=== PATIENT | female | born 1995 | race Caucasian/White ===

== ENCOUNTER 2024-08-19 18:03 | Emergency (ER) | payer MEDICAID, SELFPAY ==
[2024-08-19 22:43] VITALS: BP 130/87; PULSE 90; RESP 19; TEMP 36.8; O2SAT 98
--- NOTE | 2024-08-19 22:50 | XR_ITS ---
Examination: Pelvic ultrasound, transabdominal, complete Technique: Transabdominal ultrasound of the pelvis performed using grayscale imaging Date and time of exam: August 19, 2024 2257 hrs. Indications: Vaginal bleeding irregular heavy menses 5 years, worse the last month Findings: Uterus 12.0 x 5.1 x 6.4 cm retroverted Fluid adjacent to the uterus and in the cul-de-sac Endometrial stripe 1.7 cm Right ovary 4.8 x 3.2 x 3.3 cm arterial flow Left ovary 4.0 x 2.6 x 3.2 cm arterial flow Impression: Free fluid superior to the cervix in the vaginal canal and in the cul-de-sac, clinical correlation advised, consider pelvic inflammatory disease No uterine mass or intrauterine gestation Mildly prominent right ovary, recommend 3-6 month follow-up pelvic sonography to document stability of right ovary
--- NOTE | 2024-08-19 22:51 | PD.EDRME ---
Rapid Medical Screening Exam RME Arrival date/time: 08/19/24 18:03 28-year-old female presents emergency department complaining of abnormal vaginal bleeding that is been ongoing for 5 years. Chief Complaint: Urogenital-Female Time Seen by Provider: 08/19/24 22:46 Vital signs: Vital Signs Temperature 98.3 F 08/19/24 22:43 Pulse Rate 90 08/19/24 22:43 Respiratory Rate 19 08/19/24 22:43 Blood Pressure 130/87 H 08/19/24 22:43 Pulse Oximetry (%) 98 08/19/24 22:43 Oxygen Delivery Method Room Air 08/19/24 22:43 Vital signs reviewed by provider: Yes
[2024-08-19 23:08] LABS: Collection Type, Urine Clean Catch
[2024-08-19 23:17] LABS: Bilirubin,Urine Negative (Negative); Blood,Urine 2+ (Negative); Color,Urine Lt-Yellow (Lt Yel-Yel); Culture Indicated,Urine Not Indicated; Glucose, Urine Negative (Negative); Ketones,Urine Negative (Negative); Leukocyte Esterase,Urine Negative (Negative); Nitrite,Urine Negative (Negative); Protein,Urine Trace (Neg - Trace); RBC,Urine 2 /hpf (0-3); Specific Gravity,Urine 1.021 (1.001-1.035); Squamous Epithelial Cell,Urine 9 /hpf (0-5); Urobilinogen,Urine Negative mg/dL (0.0-1.0); WBC,Urine 1 /hpf (0-5)
[2024-08-19 23:18] LABS: Clarity,Urine Hazy (Clear/Hazy)
[2024-08-19 23:40] LABS: Basophils # (Auto) 0.1 Thou/mm3 (0.0-0.2); Basophils % (Auto) 1 % (0-2.5); Eosinophils # (Auto) 0.3 Thou/mm3 (0.0-0.5); Eosinophils % (Auto) 3 % (0-10); Hematocrit 37.6 % (36.0-46.0); Immature Granulocytes % (Auto) 0 % (0-0); Immature Granulocytes Auto 0.03 Thou/mm3 (0.00-0.00); Lymphocytes # (Auto) 3.4 Thou/mm3 (1.0-4.8); Lymphocytes % (Auto) 31 % (10-50); Mean Corpuscular HGB Conc 34.6 g/dl (31.0-37.0); Mean Corpuscular Hemoglobin 29.9 pg (25.0-35.0); Mean Corpuscular Volume 86 fL (80-100); Monocytes # (Auto) 0.6 Thou/mm3 (0.0-0.8); Monocytes % (Auto) 6 % (0-12); Neutrophils # (Auto) 6.4 Thou/mm3 (1.8-7.7); Neutrophils % (Auto) 59 % (37-80); Nucleated Red Blood Cell % 0 /100 WBC (0); Platelet Count 431 Thou/mm3 (140-440); RDW Standard Deviation 41.9 fL (36.4-46.3); Red Blood Count 4.35 Miln/mm3 (4.00-5.20); White Blood Count 10.9 Thou/mm3 (3.6-11.0)
[2024-08-19 23:44] LABS: HCG,Qualitative Serum Negative
[2024-08-19 23:51] LABS: Alanine Aminotransferase 35 U/L (10-49); Albumin, Serum 4.8 gm/dL (3.5-5.0); Albumin/Globulin Ratio 1.5 (1.2-2.2); Alkaline Phosphatase 74 U/L (46-116); Anion Gap 9 (7-16); Aspartate Amino Transferase 39 U/L (0-34); BUN/Creatinine Ratio 11 Ratio (12-20); Bilirubin,Total 0.3 mg/dL (0.3-1.2); Blood Urea Nitrogen 8 mg/dL (9-23); Calcium 9.9 mg/dL (8.3-10.6); Calcium (Corrected) 9.9 mg/dL (8.5-10.1); Carbon Dioxide 24.7 mMol/L (20.0-31.0); Chloride 103 mMol/L (98-107); Creatinine (Component) 0.7 mg/dL (0.6-1.3); Globulin 3.1 gm/dL (2.3-3.5); Glucose 172 mg/dL (74-106); Osmolality,Calculated 276 (275-295); Potassium 3.8 mMol/L (3.4-5.1); Sodium 137 mMol/L (136-145); Total Protein 7.9 gm/dL (5.7-8.2); eGFR > 60 See Note
--- NOTE | 2024-08-20 00:18 | PD.EDFMALE ---
ED Female Urogenital RME/HPI General Chief complaint: Urogenital-Female Stated complaint: VAGINAL BLEEDING FOR 1 YEAR Time Seen by Provider: 08/19/24 22:46 Source: patient Arrival date/time: 08/19/24 18:03 28-year-old female presents emergency department complaining of abnormal vaginal bleeding that is been ongoing for 5 years. Patient denies any fever, chills, dysuria, flank pain, vomiting, or any other associated symptom. Mode of arrival: ambulatory Limitations: no limitations RME / HPI RME / HPI Narrative: 08/19/24 18:03 28-year-old female presents emergency department complaining of abnormal vaginal bleeding that is been ongoing for 5 years. Related Data Home Medications ?Medication ?Instructions ?Recorded ?Confirmed vit no.95-ferrous 1 tab PO QDAY 07/26/20 07/26/20 fumarate 28 mg-folic acid 800 mcg tablet () Allergies Allergy/AdvReac Type Severity Reaction Status Date / Time No Known Allergies Allergy Verified 08/19/24 18:05 Review of Systems Review of Systems Systems Reviewed: All systems reviewed, normal except as documented Constitutional Constitutional: Reports system reviewed and no additional complaints, except as documented, Denies body ache(s), Denies chills and Denies fever(s) Eyes Eyes: Reports system reviewed and no additional complaints, except as documented and Denies change in vision ENT Ears, Nose, Mouth, and Throat: Reports system reviewed and no additional complaints, except as documented, Denies disequilibrium, Denies dizziness, Denies sore throat and Denies vertigo Cardiovascular Cardiovascular: Reports system reviewed and no additional complaints, except as documented, Denies chest pain and Denies dyspnea Respiratory Respiratory: Reports system reviewed and no additional complaints, except as documented, Denies chest congestion, Denies cough and Denies dyspnea Gastrointestinal Gastrointestinal: Reports system reviewed and no additional complaints, except as documented, Denies abdominal pain, Denies nausea and Denies vomiting Genitourinary Genitourinary: Reports abnormal menses and Reports abnormal vaginal bleeding Musculoskeletal Musculoskeletal: Reports system reviewed and no additional complaints, except as documented, Denies abnormal gait and Denies arthralgias Integumentary/Breasts Skin/Breast: Reports system reviewed and no additional complaints, except as documented, Denies erythema, Denies rash and Denies wounds Neurologic Neurologic: Reports system reviewed and no additional complaints, except as documented, Denies abnormal gait, Denies disequilibrium, Denies dizziness and Denies vertigo Past Medical History Past Medical History NEUROLOGIC: Negative Neurological Disorders CARDIAC: Negative Cardiac Disorders or Congestive Heart Failure RESPIRATORY: Negative Chronic Obstructive Pulmonary Disease (COPD) or Asthma GASTROINTESTINAL: Negative Gastrointestinal Disorders, Hepatitis or Colorectal Cancer GENITOURINARY: Negative Genitourinary Disorders, Renal Disease or Prostate Cancer REPRODUCTIVE: Negative Breast Cancer or Testicular Cancer MUSCULOSKELETAL: Negative Musculoskeletal Disorders or Bone Cancer ENDOCRINE: Negative Endocrine Disorders, Diabetes Mellitus Type 1 or Diabetes Mellitus Type 2 HEMATOLOGIC: Negative Blood Disorders or Sickle Cell Disease OTHER HISTORY: Negative Hospitalization, Autoimmune Disease, Down Syndrome, Developmental Delay, Shingles, Falls, Blood Transfusions, Blood Transfusion Reaction, Anesthesia Reactions, Organ Transplant, Chemotherapy, Radiation Therapy, Hyperbaric Therapy, MRSA, VRSA, Vancomycin-Resistant Enterococci, Human Immunodeficiency Virus (HIV), Chicken Pox, Measles, Mumps, Rubella (Arabic Measles), Pertussis, Clostridium Difficile, Cancer, Breast Cancer, Cervical Cancer, Colorectal Cancer, Lung Cancer, Ovarian Cancer, Prostate Cancer or Testicular Cancer Family History FAMILY HISTORY: Negative Family Psychiatric Problems, Family Respiratory Disorders, Family Cardiac Disorders, Family Gastrointestinal Problems, Family Cancer, Family Surgery or Family Anesthesia Reaction Surgical History SURGICAL: Negative Organ Transplant Social History SMOKING STATUS: Never smoker SECOND HAND EXPOSURE: No ED Exam General Limitations: Present no limitations General appearance: Present alert and in no apparent distress Head Head exam: Present atraumatic Eye Eye exam: Present normal appearance, PERRL and EOMI ENT ENT exam: Present normal exam, normal oropharynx and mucous membranes moist Neck Neck exam: Present normal inspection, full ROM and trachea midline Chest Chest inspection: Present normal inspection and symmetric chest wall rise Respiratory Respiratory exam: Present normal lung sounds bilaterally Cardiovascular Cardiovascular exam: Present regular rate, normal rhythm and normal heart sounds Abdominal Exam Abdominal exam: Present soft and normal bowel sounds Extremities Exam Extremities exam: Present normal inspection and full ROM Back Exam Back exam: Present normal inspection and full ROM Neurological Exam Neurological exam: Present alert, oriented X3 and CN II-XII intact Psychiatric Psychiatric exam: Present normal affect and normal mood Skin Skin exam: Present warm, dry, intact and normal color Course Quality Measures none Orders Category Date Time Status US pelvic complete Stat Exams 08/19/24 22:50 Completed CBC Stat Lab 08/19/24 23:06 Completed CMP [Comprehensive Metabolic Panel] Stat Lab 08/19/24 23:06 Completed HCG,Qualitative Serum Stat Lab 08/19/24 23:06 Completed Urinalysis, C/S if Indicated Stat Lab 08/19/24 22:55 Completed Vital Signs Vital signs: Vital Signs Temperature 98.3 F 08/19/24 22:43 Pulse Rate 90 08/19/24 22:43 Respiratory Rate 19 08/19/24 22:43 Blood Pressure 130/87 H 08/19/24 22:43 Pulse Oximetry (%) 98 08/19/24 22:43 Oxygen Delivery Method Room Air 08/19/24 22:43 98% room air within normal limits Urogenital - Female MDM Narrative MDM Narrative:: 28-year-old female presents emergency department complaining of abnormal vaginal bleeding that is been ongoing for 5 years. Patient denies any fever, chills, dysuria, flank pain, vomiting, or any other associated symptom. CBC was unremarkable for any leukocytosis or anemia. Hemoglobin 13.0. Chemistry panel was unremarkable. hCG negative. Urinalysis was also unremarkable. Ultrasound impression: Free fluid superior to the cervix in the vaginal canal and in the cul-de-sac, clinical correlation advised, consider pelvic inflammatory disease No uterine mass or intrauterine gestation Mildly prominent right ovary, recommend 3-6 month follow-up pelvic sonography to document stability of right ovary Patient appears nontoxic and is hemodynamically stable. Instructed patient to follow-up with [facility] for dysmenorrhea treatment options such as control and request repeat ultrasound of pelvis upon discharge and return to emergency department for any worsening symptoms or as needed. Patient data External records reviewed:: [facility] previous records Clinical information provided by:: patient Social determinants that could affect healthcare access:: none Patient has the following chronic illnesses:: See chart How is presenting disease/condition affected by chronic disease/condition?: uneffected by Evaluation data The following diagnostics were reviewed and interpreted by me:: lab results and radiology exam(s) Lab and/or radiology exams considered but not ordered:: Ordered Interpretation Summary: Interpreted by me Medications / Prescriptions Medications or Prescriptions considered but not ordered:: N/A Medication administrations:: N/A Consultations Consultation(s) initiated? (list below): No Diagnosis Urogenital Female Differential Diagnosis: urinary tract infection, bacterial vaginosis, trichomoniasis, cervicitis, ovarian cyst, vaginitis, ruptured ovarian cyst, cystitis and dysmenorrhea Most likely diagnosis given after review of the tests above:: Dysmenorrhea Admission Indicated Admission indicated?: not indicated Admission Request Was there a request for admission?: No Disposition Plan Disposition Plan: Discharge Discharge Attestation Discharge Attestation: The patient and all family members were given an opportunity to ask questions and understood the discharge instructions. Discharge instructions specifically effects, indications for sooner follow up or return to the emergency department, and the expected course of current diagnosis. Patient condition: Stable Discharge Plan Plan Patient Disposition: HOME (Self Care) Disposition Comment: Stable Prescriptions/Referrals Prescriptions/Med Rec: No Action PNV cmb#95-ferrous fumarate-FA [] 28 mg iron- 800 mcg tablet 1 tab PO QDAY Patient Comments: TAKE 1 TABLET BY MOUTH EVERY DAY Referrals: No Primary/Family,Physician [Primary Care Provider] - In 1 week Problem List Clinical Impression: Dysmenorrhea Patient/Caregiver Discharge Instructions Discharge Activity: activity as tolerated Education Materials: ED MENSTRUAL CRAMPING Additional Instructions: Drink plenty of fluids and stay hydrated. Take Tylenol or ibuprofen as needed for pain. Follow-up with primary care provider and request referral to [facility] in 2 to 3 days and request repeat ultrasound of pelvis. Return to emergency department for any worsening symptoms or as needed. Print Language: Tongan Stand Alone Forms: Linda Award Info., Patient Portal Info Letter VIVEK/VIDA Supervising Physician VIVEK/VIDA Supervising Physician: Dr. Morel
--- NOTE | 2024-08-20 00:25 | PC.NURSE ---
Provider discussed all results with patient. Encouraged to follow up with her OBGYN. Patient became upset at provider, walked away abruptly and exited ED.
== END 2024-08-20 00:32 | disposition home or self-care (01) ==
PROVIDERS: Emergency Provider Emergency Medicine
DX: N94.6 Dysmenorrhea, unspecified (principal)
CPT/HCPCS: 36415; 76856; 80053; 81001; 84703; 85025; 99284